=== PATIENT | female | born 1990 | race African-American/Black ===

== ENCOUNTER 2017-03-15 13:12 | Emergency (ER) | payer MEDICAID ==
[~2017-03-15] VITALS: Ht 167.6 cm; Wt 50.0 kg
[~2017-03-15 13:12] MED LIST: ALBU05 IH
[2017-03-15 13:18] VITALS: BP 104/58
== END 2017-03-15 17:03 | disposition left against medical advice (07) ==
LOC: ER 14:39
DX: Z53.21 Procedure and treatment not carried out due to patient leaving prior to being seen by health care provider (principal)

== ENCOUNTER 2017-10-04 08:49 | Emergency (ER) | payer OTHER ==
[~2017-10-04] VITALS: Ht 157.5 cm; Wt 49.0 kg
[2017-10-04] MEDS ORDERED: TETANUS, DIPHTHERIA, PERTUSSIS VAC/PF 0.5ML (>7YR OLD) IM ONE (11:00)
[2017-10-04] MEDS ORDERED: HYDROCODONE/ACETAMINOPHEN 5/325MG TABLET PO ONE (11:00)
[2017-10-04 12:05] LABS: HCG SCREEN NEGATIVE
[2017-10-04 13:20] VITALS: BP 119/69
== END 2017-10-04 13:23 | disposition home or self-care (01) ==
LOC: ER 09:11
DX: S01.81XA Laceration without foreign body of other part of head, initial encounter (principal); S50.811A Abrasion of right forearm, initial encounter; J32.0 Chronic maxillary sinusitis; J45.909 Unspecified asthma, uncomplicated; Y09 Assault by unspecified means; Z23 Encounter for immunization
CPT/HCPCS: 70450; 70486; 84703; 90471; 90715; 99285; X7700; Z7610